=== PATIENT | male | born 1980 | race African-American/Black ===

== ENCOUNTER 2016-11-12 06:45 | Observation (INO) | payer OTHER ==
[2016-11-12 07:46] LABS: Hematocrit 44 % (42-52); Hemoglobin 14.9 g/dl (14.0-18.0); Mean Corpuscular HGB Conc 34 g/dl (31-36); Mean Corpuscular Hemoglobin 32 pg (27-31); Mean Corpuscular Volume 94 fL (80-94); Mean Platelet Volume 8 um3 (7.4-10.4); Red Blood Count 4.68 10^6/ul (4.0-5.4); Red Cell Distribution Width 13 % (10.5-15); White Blood Count 5.5 10^3/ul (3.5-10.8)
[2016-11-12 07:59] LABS: ALT 16 U/L (7-52); Albumin 4.5 g/dL (3.2-5.2); Alkaline Phosphatase 38 U/L (34-104); BUN/Creatinine Ratio 9.9 (8-20); Blood Urea Nitrogen 13 mg/dL (6-24); CO2 Carbon Dioxide 24 mmol/L (22-32); Calcium 9.7 mg/dL (8.6-10.3); Chloride 104 mmol/L (101-111); EGFR African American 79.2 (>60); EGFR Non-African American 61.6 (>60); Globulin 2.9 g/dL (2-4); Glucose 114 mg/dL (70-100); Magnesium 1.9 mg/dL (1.9-2.7); Sodium 133 mmol/L (133-145); Total Protein 7.4 g/dL (6.4-8.9)
[2016-11-12 08:01] LABS: Alcohol < 10 mg/dL (<10)
[2016-11-12 08:12] LABS: TSH (Thyroid Stimulating Horm) 2.49 mcIU/mL (0.34-5.60)
--- NOTE | 2016-11-12 08:42 | RAD ---
INDICATION: Syncope. COMPARISON: Comparison is made with prior CTs of the brain from February 21, 2010 and March 21, 2015. TECHNIQUE: Contiguous axial sections of the brain were obtained from the skull base to the vertex without contrast. FINDINGS: The ventricles, cisterns and sulci are within normal limits. There is a fluid density lesion present in the right frontal lobe measuring 1.4 x 1.3 cm in size which is unchanged from the prior exams and suggestive of an arachnoid cyst as previously noted. No other focal abnormalities or mass effect are seen. There is no evidence for hemorrhage. No significant focal osseous abnormality is seen. The visualized portion of the paranasal sinuses and mastoid air cells appear clear. IMPRESSION: 1. NO EVIDENCE FOR ACUTE INTRACRANIAL ABNORMALITY. 2. STABLE CYSTIC LESION IN THE RIGHT FRONTAL LOBE.
[2016-11-12] MEDS ORDERED: NS 0.9% 1000 ML* 1,000 ML IV SCH (08:45)
--- NOTE | 2016-11-12 08:46 | RAD ---
INDICATION: Neck pain. Fall. COMPARISON: CT cervical spine June 12, 2015 TECHNIQUE: Noncontrast axial source images was performed from the skull base to the thoracic inlet. Coronal and and sagittal reformatted images were generated. FINDINGS: Vertebrae: There is no fracture or acute focal bony lesion. There is minor vertebral spurring about C5-C6 and moderate disc space narrowing about C5-C6. Alignment: The craniocervical junction appears normal. The cervical vertebrae are normally aligned. Central Canal: There are no significant CT abnormalities of the central canal or foramina. MR imaging is a more sensitive method to evaluate the canal and foramina. Intervertebral disc spaces: The remaining disc spaces are maintained. Brain: The visualized brain appears unremarkable. Soft tissues: The visualized soft tissue elements of the neck are unremarkable. The prevertebral soft tissues appear normal. The lung apices are clear. Other: There is mild right apical scarring, unchanged. IMPRESSION: NO ACUTE CT FINDINGS.
[2016-11-12] MEDS ORDERED: Tetan/Diph/Pertus SYR(Tdap)* 0.5 ML SYR(BOOSTRIX) use SYR IM ONE (09:16)
--- NOTE | 2016-11-12 09:19 | RAD ---
INDICATION: Syncope. COMPARISON: Comparison is made with a prior chest x-ray study from December 02, 2012. TECHNIQUE: Dual-energy PA and lateral views of the chest were obtained. FINDINGS: The heart is within normal limits in size. Mediastinal and hilar contours appear within normal limits. The lungs are clear. No pleural effusion is present. IMPRESSION: NO EVIDENCE FOR ACTIVE CARDIOPULMONARY DISEASE.
--- NOTE | 2016-11-12 10:11 | ED ---
Donavan Palm Billy, scribed for Gilbert Taylor MD on 11/12/16 at 0720 . Syncope/Near Syncope - HPI Summary HPI Summary: Patient is a 36 year-old male coming to [facility] for evaluation of a syncopal episode this morning at approximately 0600. Patient says that he got up out of bed, felt "weird," and walked downstairs to take his medication (Zoloft). He states that the next thing he can recall is that he is on the floor, and his girlfriend was next to him calling 911. He states that his girlfriend did not see any shaking. Patient has a history of several syncopal episodes in the past of unknown cause; patient sites his history of anxiety. He denies any chest pain or shortness of breath, although he had palpitations prior to syncope. Denies headache or neck pain at this time in the ED, but he presents with multiple abrasions to the face. Patient saw his PCP (Dr. Gallardo) recently for evaluation of GI symptoms, but he denies any abdominal pain this morning. - History Of Current Complaint Chief Complaint: EDSyncope Time Seen by Provider: 11/12/16 07:12 Hx Obtained From: Patient Onset/Duration: Sudden Onset Context: Witnessed, Loss Of Consciousness Activity At Onset: Exertion - Walking downstairs to take medication Associated Head Trauma: Yes Aggravating Factor(s): Nothing Alleviating Factor(s): Spontaneous Resolution - Allergies/Home Medications Allergies/Adverse Reactions: Allergies Allergy/AdvReac Type Severity Reaction Status Date / Time ENVIROMENTAL Allergy Mild Sneezing Uncoded 07/23/16 12:47 PMH/Surg Hx/FS Hx/Imm Hx Endocrine/Hematology History: Denies: Hx Anticoagulant Therapy, Hx Diabetes, Hx Thyroid Disease Cardiovascular History: Denies: Hx Hypertension, Hx Pacemaker/ICD Respiratory History: Denies: Hx Asthma, Hx Chronic Obstructive Pulmonary Disease (COPD) History: Denies: Hx Renal Disease Neurological History: Denies: Hx Dementia, Hx Seizures Psychiatric History: Denies: Hx Substance Abuse - Surgical History Surgery Procedure, Year, and Place: CYST REMOVED FROM HEAD Infectious Disease History: No Infectious Disease History: Denies: Hx Hepatitis, Hx Human Immunodeficiency Virus (HIV), History Other Infectious Disease, Traveled Outside the [place] in Last 30 Days - Family History Known Family History: Positive: Diabetes, Respiratory Disease - Asthma, Other - Anxiety - Social History Alcohol Use: None Substance Use Type: Reports: Marijuana Hx Tobacco Use: Yes Smoking Status (MU): Heavy Every Day Tobacco Smoker Type: Cigarettes Amount Used/How Often: 1/2 ppd Review of Systems Positive: Palpitations. Negative: Chest Pain Negative: Shortness Of Breath Positive: Syncope. Negative: Headache All Other Systems Reviewed And Are Negative: Yes Physical Exam - Summary Physical Exam Summary: The patient is well-nourished in no acute distress and in no acute pain. The skin is warm and dry and skin color reflects adequate perfusion. HEENT: There are abrasions to the right-side of the forehead, face, and nose. The pupils are equal and reactive. The conjunctivae are clear and without drainage. Nares are patent and without drainage. Mouth reveals moist mucous membranes and the throat is without erythema and exudate. The external ears are intact. The ear canals are patent and without drainage. The tympanic membranes are intact. Neck is supple with full range of motion and non-tender. There are no carotid bruits. There is no neck vein distension. Respiratory: Chest is non-tender. Lungs are clear to auscultation and breath sounds are symmetrical and equal. Cardiovascular: Heart is regular rate and rhythm. There is no murmur or rub auscultated. There is no peripheral edema and pulses are symmetrical and equal. Abdomen: The abdomen is soft and non-tender. There are normal bowel sounds heard in all four quadrants and there is no organomegaly palpated. Musculoskeletal: There is no back pain noted. Extremities are non-tender with full range of motion. There is good capillary refill. There is no peripheral edema or calf tenderness elicited. Neurological: Patient is alert and oriented to person, place and time. The patient has symmetrical motor strength in all four extremities. Cranial nerves are grossly intact. Deep tendon reflexes are symmetrical and equal in all four extremities. Psychiatric: The patient has an appropriate affect and does not exhibit any anxiety or depression. Triage Information Reviewed: Yes Vital Signs On Initial Exam: Initial Vitals Temp Pulse Resp BP Pulse Ox 97.6 F 63 15 127/90 100 11/12/16 06:45 11/12/16 06:45 11/12/16 06:45 11/12/16 06:45 11/12/16 06:45 Vital Signs Reviewed: Yes Diagnostics - Vital Signs Vital Signs Temp Pulse Resp BP Pulse Ox 11/12/16 07:00 47 15 123/78 100 11/12/16 06:54 53 100 11/12/16 06:52 123/86 11/12/16 06:45 97.6 F 63 15 127/90 100 - Laboratory Lab Results: Lab Results 11/12/16 11/12/16 11/12/16 Range/Units 07:30 07:30 07:30 WBC 5.5 (3.5-10.8) 10^3/ul RBC 4.68 (4.0-5.4) 10^6/ul Hgb 14.9 (14.0-18.0) g/dl Hct 44 (42-52) % MCV 94 (80-94) fL MCH 32 H (27-31) pg MCHC 34 (31-36) g/dl RDW 13 (10.5-15) % Plt Count 193 (150-450) 10^3/ul MPV 8 (7.4-10.4) um3 Neut % (Auto) 56.4 (38-83) % Lymph % (Auto) 34.7 (25-47) % [place] % (Auto) 6.0 (1-9) % Eos % (Auto) 2.2 (0-6) % Baso % (Auto) 0.7 (0-2) % Absolute Neuts (auto) 3.1 (1.5-7.7) 10^3/ul Absolute Lymphs (auto) 1.9 (1.0-4.8) 10^3/ul Absolute Monos (auto) 0.3 (0-0.8) 10^3/ul Absolute Eos (auto) 0.1 (0-0.6) 10^3/ul Absolute Basos (auto) 0 (0-0.2) 10^3/ul Absolute Nucleated RBC 0 10^3/ul Nucleated RBC % 0.1 APTT (26.0-36.3) seconds Sodium 133 (133-145) mmol/L Potassium TNP Chloride 104 (101-111) mmol/L Carbon Dioxide 24 (22-32) mmol/L Anion Gap TNP BUN 13 (6-24) mg/dL Creatinine 1.31 H (0.67-1.17) mg/dL Est GFR ( Amer) 79.2 (>60) Est GFR (Non-Af Amer) 61.6 (>60) BUN/Creatinine Ratio 9.9 (8-20) Glucose 114 H (70-100) mg/dL Lactic Acid 1.5 (0.5-2.0) mmol/L Calcium 9.7 (8.6-10.3) mg/dL Magnesium 1.9 (1.9-2.7) mg/dL Total Bilirubin 0.80 (0.2-1.0) mg/dL AST TNP ALT 16 (7-52) U/L Alkaline Phosphatase 38 (34-104) U/L Troponin I 0.00 (<0.04) ng/mL B-Natriuretic Peptide ( - 100) pg/mL Total Protein 7.4 (6.4-8.9) g/dL Albumin 4.5 (3.2-5.2) g/dL Globulin 2.9 (2-4) g/dL Albumin/Globulin Ratio 1.6 (1-3) TSH 2.49 (0.34-5.60) mcIU/mL Serum Alcohol < 10 (<10) mg/dL 11/12/16 11/12/16 11/12/16 Range/Units 08:25 08:25 08:25 WBC (3.5-10.8) 10^3/ul RBC (4.0-5.4) 10^6/ul Hgb (14.0-18.0) g/dl Hct (42-52) % MCV (80-94) fL MCH (27-31) pg MCHC (31-36) g/dl RDW (10.5-15) % Plt Count (150-450) 10^3/ul MPV (7.4-10.4) um3 Neut % (Auto) (38-83) % Lymph % (Auto) (25-47) % [place] % (Auto) (1-9) % Eos % (Auto) (0-6) % Baso % (Auto) (0-2) % Absolute Neuts (auto) (1.5-7.7) 10^3/ul Absolute Lymphs (auto) (1.0-4.8) 10^3/ul Absolute Monos (auto) (0-0.8) 10^3/ul Absolute Eos (auto) (0-0.6) 10^3/ul Absolute Basos (auto) (0-0.2) 10^3/ul Absolute Nucleated RBC 10^3/ul Nucleated RBC % APTT 25.9 L (26.0-36.3) seconds Sodium (133-145) mmol/L Potassium 3.8 Chloride (101-111) mmol/L Carbon Dioxide (22-32) mmol/L Anion Gap BUN (6-24) mg/dL Creatinine (0.67-1.17) mg/dL Est GFR ( Amer) (>60) Est GFR (Non-Af Amer) (>60) BUN/Creatinine Ratio (8-20) Glucose (70-100) mg/dL Lactic Acid (0.5-2.0) mmol/L Calcium (8.6-10.3) mg/dL Magnesium (1.9-2.7) mg/dL Total Bilirubin (0.2-1.0) mg/dL AST 17 ALT (7-52) U/L Alkaline Phosphatase (34-104) U/L Troponin I (<0.04) ng/mL B-Natriuretic Peptide 6 ( - 100) pg/mL Total Protein (6.4-8.9) g/dL Albumin (3.2-5.2) g/dL Globulin (2-4) g/dL Albumin/Globulin Ratio (1-3) TSH (0.34-5.60) mcIU/mL Serum Alcohol (<10) mg/dL Result Diagrams: 11/12/16 07:30 11/12/16 08:25 Lab Statement: Any lab studies that have been ordered have been reviewed, and results considered in the medical decision making process. - Radiology CXR Xray Interpretation: No Acute Changes Radiology Interpretation Completed By: Radiologist - CT Cervical Spine CT Interpretation Completed By: Radiologist - NO ACUTE CT FINDINGS. Brain CT Interpretation Completed By: Radiologist - 1. NO EVIDENCE FOR ACUTE INTRACRANIAL ABNORMALITY. 2. STABLE CYSTIC LESION IN THE RIGHT FRONTAL LOBE. - EKG 0713 EKG Interpretation: sinus bradycardia 48 bpm, peaked T-waves in V3-V5. Course/Dx Assessment/Plan: Patient is a 36 year-old male coming to [facility] for evaluation of a syncopal episode this morning at approximately 0600. Patient says that he got up out of bed, felt "weird," and walked downstairs to take his medication ( Zoloft). He states that the next thing he can recall is that he is on the floor , and his girlfriend was next to him calling 911. He states that his girlfriend did not see any shaking. Patient has a history of several syncopal episodes in the past of unknown cause; patient sites his history of anxiety. He denies any chest pain or shortness of breath, although he had palpitations prior to syncope. Denies headache or neck pain at this time in the ED, but he presents with multiple abrasions to the face. Patient saw his PCP (Dr. Gallardo) recently for evaluation of GI symptoms, but he denies any abdominal pain this morning. Bloodwork WNL except for creatinine of 1.31. CT of the head shows no acute intracranial pathology. CT neck shows no fracture or dislocation. CXR shows no acute intrathoracic pathology. EKG shows sinus bradycardia with peaked T-waves with no ST elevation. Potassium is noted to be WNL. The patient had a syncopal episode where he complained of rapid heartrate before he passed out. At this point, I am unsure if he had arrhythmia causing the syncopal episode. I have no suspicion for PE since he is no hypoxic, saturating 100% O2, and the heart rate is ranging between 47 and 53 bpm. I also do not suspect acute coronary syndrome without any comorbidities or EKG changes. However, because of his syncopal episode, I discussed the case with Dr. Ly who accepted the patient for admission. He is hemodynamically stable, A&Ox3. He has abrasions on the face, therefore he will be given a tetanus booster. - Diagnoses Differential Diagnosis/HQI/PQRI: Positive: Cerebral Vascular Accident, Dysrhythmia, Hypoglycemia, Hypovolemia, Seizure, Transient Ischemic Attack Provider Diagnoses: SYNCOPE/DEHYDRATION - Physician Notifications Discussed Care Of Patient With: Dr. Ly (hospitalist) @ 0865: patient care discussed. Dr. Ly (hospitalist) @ 0906: accepts admission. Discharge - Discharge Plan Condition: Stable Disposition: ADMITTED TO [facility] documentation as recorded by the Donavan rodriguez Billy accurately reflects the service I personally performed and the decisions made by me, Gilbert Taylor MD.
[2016-11-12] MEDS: Ibuprofen TAB* 600 MG PO PRN ×2 (10:44→16:53)
[2016-11-12] MEDS ORDERED: Acetaminophen TAB* 325 MG PO PRN (12:55)
[2016-11-12] MEDS ORDERED: Ondansetron INJ* 2 MG/ML VIAL IV PRN (12:55)
--- NOTE | 2016-11-12 16:21 | ECHO ---
Patient: HOA METCALF [facility] Rec#: [id number] : 1980 Date: 11/12/2016 Age: 36y Height: 187.96 cm / 74.0 in Weight: 73.48 kg / 161.9 lbs Sex: M BSA: 1.99 Room#: [facility] Admit Date#: 11/12/2016 Type: Inpatient Referring: Tan Mai NP Reading: Delilah Ramirez MD Solutions Analyst: Chandni Melendrez [facility] Transthoracic Echocardiogram Indication: Syncope BP: 125/74 HR: 46 Rhythm: Bradycardia Findings History: No PMHx,smoker. Technical Comments: The study is technically limited due to patient body habitus. Completed at 1513. Left Ventricle: The left ventricular chamber size is normal. Global left ventricular wall motion and contractility are within normal limits. There is normal left ventricular systolic function. The estimated ejection fraction is 55-60%. Normal left ventricular diastolic filling is observed. 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 Right Ventricle: The right ventricular cavity size is normal. The right ventricular global systolic function is low normal. Right Atrium: The right atrial cavity size is normal. Aortic Valve: The aortic valve structure is normal. There is no evidence of aortic regurgitation. There is no evidence of aortic stenosis. Mitral Valve: The mitral valve leaflets are mildly thickened. There is no evidence of mitral regurgitation. There is no evidence of mitral stenosis. Tricuspid Valve: The tricuspid valve leaflets are normal. There is trace to mild tricuspid regurgitation. No pulmonary hypertension is noted. There is no tricuspid stenosis. Pulmonic Valve: There is mild pulmonic regurgitation. There is no pulmonic stenosis. Pericardium: The pericardium appears normal. Aorta: There is no dilatation of the ascending aorta. There is no dilatation of the aortic arch. There is no dilation of the aortic root. Pulmonary Artery: The main pulmonary artery appears normal. Venous: The inferior vena cava appears normal in size. Conclusions The left ventricular chamber size is normal. Global left ventricular wall motion and contractility are within normal limits. The estimated ejection fraction is 55-60%. The right ventricular global systolic function is low normal. .Intra atrial septum is mildly aneurismal. All valves appear structurally normal with normal excursion. There is trace to mild tricuspid regurgitation. No prior echo to compare. Measurements Name Value Normal Range RVIDd (AP) 2D 2.2 cm (0.9 - 2.6) RVDdMajor (2D) 3.2 cm (2.2 - 4.4) RAd ISD 4CH 4 cm (3.4 - 4.9) RA (A4C)W 3.9 cm (2.9 - 4.6) IVSd (2D) 0.7 cm (0.6 - 1) LVPWd (2D) 0.8 cm (0.6 - 1) LVIDd (2D) 4.6 cm (3.6 - 5.4) LVIDs (2D) 2.9 cm - LV FS (2D) 37 % (25 - 45) Aortic Annulus 1.7 cm (1.4 - 2.6) Ao root diameter (2D) 3.2 cm (2.1 - 3.5) Ascending Ao 2.4 cm (2.1 - 3.4) Aortic arch 2.5 cm (1.8 - 3.4) Descending Ao 0.6 cm - LA dimension (AP) 2D 2.6 cm (2.3 - 3.8) LAd ISD 4CH 3.8 cm (2.9 - 5.3) LA ISD 4CH W 4.7 cm (2.5 - 4.5) Name Value Normal Range LA ESV SP 4CH (A/L) 62 ml - LA ESV SP 2CH (A/L) 32 ml - LA ESV BP (A/L) 47 ml - LA ESV BP (A/L) index 23.77 ml/m2 - LA ESV SP 4CH (MOD) 50 ml - LA ESV SP 2CH (MOD) 27 ml - Name Value Normal Range MV E-wave Vmax 0.7 m/sec - MV deceleration time 297 msec - MV A-wave Vmax 0.7 m/sec - MV E:A ratio 1.07 ratio - LV septal e' Vmax 0.17 m/sec - LV lateral e' Vmax 0.12 m/sec - LV E:e' septal ratio 4.11 ratio - LV E:e' lateral ratio 5.83 ratio - Name Value Normal Range AV Vmax 1.2 m/sec - AV VTI 28 cm - AV peak gradient 6.17 mmHg - AV mean gradient 2.47 mmHg - LVOT Vmax 1 m/sec - LVOT VTI 22.5 cm - LVOT peak gradient 4.37 mmHg - LVOT mean gradient 1.99 mmHg - Name Value Normal Range TR Vmax 2.1 m/sec - TR peak gradient 17 mmHg - RAP 3 mmHg - RVSP 20 mmHg - IVC diameter 1.1 cm - Name Value Normal Range PV Vmax 0.6 m/sec - PV peak gradient 1.57 mmHg -
[2016-11-12] MEDS: NS 0.9% 1000 ML* 1,000 ML IV SCH ×2 (16:55→23:49)
[2016-11-12 20:32] LABS: Benzodiazepine Urine Screen None Detected (None Detect)
[2016-11-12 20:52] LABS: Urine Bilirubin Negative (Negative); Urine Glucose Negative (Negative); Urine Nitrite Negative (Negative)
--- NOTE | 2016-11-12 21:05 | HP ---
HISTORY AND PHYSICAL: DATE OF ADMISSION: 11/12/16 PRIMARY CARE PROVIDER: Dr. Gallardo. ATTENDING PHYSICIAN WHILE IN THE HOSPITAL: Ashli Hall MD* (report dictated by Tan Mai NP). CHIEF COMPLAINT: Syncope. HISTORY OF PRESENT ILLNESS: Mr. Porras is a 36-year-old male patient, who really only carries a history of anxiety and according to the patient he was recently started on Zoloft, but he states he has not really been taking it every day as prescribed. What happened today is at 6 in the morning, he went to wake his son up for school and he walked down the stairs to take his Zoloft that is the last thing he remembers, the next thing he remembers he had come to , his girlfriend was standing over him. He apparently had passed out. He does state that the evening prior to this episode he was having palpitations and some chest tightness, but he had none right before the event and none after the event. There was no palpitations. Denied having any shortness of breath and denied having any chest pain. The girlfriend summoned EMS, EMS came and when they went to pick him up and put him on a wheelchair, he had another episode where he fainted again and at that point they put him on a stretcher and then brought him to the ER. The patient states that before passing out, the only thing he felt is he felt dizzy. He denied having any confusion afterwards and that when he came to, he knew exactly where he was. He knew what had happened after his girlfriend told him. He remembers his girlfriend talking to him and telling him that he had fainted. He is unsure of exactly how long he was out for the first episode, second episode he states he was out for just seconds and there was no report of incontinence and there was no report of myoclonic movement. The patient came to the ER and was evaluated. He also states that leading up to this a few days ago, he was having episodes of diarrhea, 4 to 5 bowel movements a day and despite this he took a laxative on top of it and then he said he really had multiple loose bowel movements. He denied having any recent antibiotics and denied having any abdominal pain or fever. Nonetheless, because of the syncopal episode, he came to the ER, was evaluated, there was concern because of the syncope and the hospitalist service was asked to evaluate for admission. PAST MEDICAL HISTORY: Significant for anxiety. PAST SURGICAL HISTORY: Denied. HOME MEDICATIONS: According to the patient the only thing he is taking now and he admittedly does not take it as prescribed; he is on Zoloft 50 mg daily and he takes it sporadically. ALLERGIES TO MEDICATIONS: No known drug allergies. FAMILY HISTORY: His mother had asthma. Father had history of diabetes and HIV. SOCIAL HISTORY: He does not smoke. He occasionally smokes marijuana. He denied any other recreational drug use. He does have a girlfriend. He does not appoint a surrogate decision maker at this point. REVIEW OF SYSTEMS: There is no documented fever. He denied having any significant weight change. There was no double vision. He denies having any ear discharge. There is no rhinorrhea. No sore throat. No thyroid enlargement. He denies having any chest pain. There is no orthopnea. No nocturnal dyspnea. There is no abdominal pain. There was no nausea, no vomiting. There was diarrhea. No dysuria. No frequency. No loss of consciousness. No pruritus. No skin ulcerations. Review of 14 systems completed, all others negative. PHYSICAL EXAMINATION GENERAL: At this time, Mr. Porras is a 36-year-old male patient. He appears well nourished, well developed. VITAL SIGNS: Blood pressure 125/68 with a pulse of 55, respirations 18, O2 sat 100%, and temperature 98.7. HEENT: Head, he does have area of abrasion on right side of his face and above the right eye, otherwise atraumatic. Eyes: Sclerae anicteric. EOMs are intact. Pupils reactive to light. Throat: Oral mucosa appears to be dry. No oropharyngeal erythema. NECK: Supple. LUNGS: Clear to auscultation bilaterally. No wheezes, rales, or rhonchi. HEART: Sounds S1 and S2. Regular rate and rhythm. No murmurs, rubs, or gallops. ABDOMEN: Soft, flat, and nontender. Bowel sounds present. EXTREMITIES: Pulses 2+ throughout. Able to move all 4 extremities with 5/5 strength. NEUROLOGIC: The patient is awake, he is alert, he is oriented x3. His tongue is midline. He had no gross focal deficits. SKIN: Intact with the exception of the abrasion to the right side of the face. LABORATORY DATA: Labs today revealed WBC of 5.5, RBC of 4.68, hemoglobin 14.9 , hematocrit of 44, platelet count of 193. The PTT was 25.9, sodium of 133, potassium of 3.8, chloride of 104, bicarb 24, BUN 13, creatinine 1.31, glucose of 114, lactate 1.5, calcium 9.7, magnesium 1.9, total bilirubin 0.8, AST 17, ALT 16, alk phos of 38. His troponin was 0.00. His BNP was 6. His TSH was normal. Toxicology was negative for alcohol. He did have a cervical spine CT obtained today, which showed no acute CT findings. There was a brain CT today which showed no evidence for acute intracranial abnormalities, stable cystic lesion in the right frontal lobe. There was a chest x-ray obtained today as well, which showed no evidence for acute cardiopulmonary disease. There was an EKG obtained today, which showed sinus bradycardia at a rate of 48. He did not have any AV blocks. He did have ST elevation in V4 and V5, it is subtle, but is probably again early repolarization pattern. He has had this in his previous EKGs and no significant changes. In his previous EKGs, his baseline heart rate is around 50. Old medical records were reviewed. ASSESSMENT AND PLAN: Mr. Porras is a 36-year-old male patient coming into the ER toady with complaints of a syncopal episode today in the setting of having recent episode of a gastroenteritis it sounds like and diarrhea. We were asked to evaluate for admission. He will be admitted under observation status for: 1. Syncope. I suspect the result of this is probably from orthostasis and a vasovagal syncope. He again leading up to this has had diarrhea for 3 to 4 days. He actually took a laxative one of those days and the orthostatics, his heart rate goes from 55 to 88 when he stands in addition to this, his blood pressure does not change, however and his creatinine is up, so he does appear to be hypovolemic. I think he deserves some IV fluids. He has passed out in the past before, so I think an echo is warranted. I will cycle his troponins, I will get an EKG in the morning and we will continue to follow him on telemetry to see if there are any events. 2. Anxiety. At this point, I am going to hold the Zoloft, he is not taking it on a routine basis. He needs to follow with his primary and I did instruct him that he should take this on a routine basis. 3. DVT prophylaxis. He is low risk. He will be placed on SCDs. 4. Fluids, electrolytes and nutrition. He can have a heart healthy diet. 5. Code status. Full code. TIME SPENT: On this admission was 60 minutes, greater than half the time spent [id number] with the patient obtaining my history and physical, other half of the time spent going over the plan of care with the patient and implementing plan of care. I did discuss the plan of care with my attending, Dr. Hall, she is in agreement. TAN MAI NP CC: Dr. Gallardo* [id number]/[facility] #: [id number] MTDOsiris
[2016-11-13] MEDS: Ibuprofen TAB* 600 MG PO PRN ×2 (02:13→09:49)
[2016-11-13 05:36] LABS: Hematocrit 40 % (42-52); Hemoglobin 13.6 g/dl (14.0-18.0); Mean Corpuscular HGB Conc 34 g/dl (31-36); Mean Corpuscular Hemoglobin 32 pg (27-31); Mean Corpuscular Volume 95 fL (80-94); Mean Platelet Volume 8 um3 (7.4-10.4); Red Blood Count 4.27 10^6/ul (4.0-5.4); Red Cell Distribution Width 13 % (10.5-15); White Blood Count 6.7 10^3/ul (3.5-10.8)
[2016-11-13 05:52] LABS: Calcium 8.7 mg/dL (8.6-10.3); EGFR African American 96.9 (>60); EGFR Non-African American 75.3 (>60)
[2016-11-13 09:36] VITALS: BP 120/82
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
== END 2016-11-13 11:19 | disposition home or self-care (01) ==
LOC: ED 06:45 → MEDTELE 09:26
PROVIDERS: ADMIT Internal Medicine; ATTEND Internal Medicine
DX: R55 Syncope and collapse (principal); S00.81XA Abrasion of other part of head, initial encounter; S13.4XXA Sprain of ligaments of cervical spine, initial encounter; X58.XXXA Exposure to other specified factors, initial encounter; Y92.9 Unspecified place or not applicable; G93.9 Disorder of brain, unspecified; N17.9 Acute kidney failure, unspecified; F41.9 Anxiety disorder, unspecified; Z23 Encounter for immunization; R00.1 Bradycardia, unspecified; R94.31 Abnormal electrocardiogram [ECG] [EKG]
CPT/HCPCS: 36415; 70450; 71020; 72125; 80048; 80053; 80307; 80320; 81003; 83605; 83735; 83880; 84443; 84484; 85025; 85610; 85730; 90471; 90715; 93005; 93306; 94760; 96360; 96361; 99284; A9270-GY; G0378; G0480; J2405

== ENCOUNTER 2016-11-14 10:14 | Emergency (ER) | payer SELFPAY ==
[2016-11-14] MEDS ORDERED: Meclizine TAB* 12.5 MG PO ONE (10:20)
[2016-11-14] MEDS ORDERED: NS 0.9% 1000 ML* 2,000 ML IV ONE (10:20)
--- NOTE | 2016-11-14 10:57 | RAD ---
INDICATION: Dizziness COMPARISON: November 12, 2016 TECHNIQUE: An AP portable view obtained at 1035 hours is submitted. FINDINGS: Bones/Soft Tissues: There are no acute bony findings. Cardiomediastinal: The cardiomediastinal silhouette is normal. Lungs: There are no infiltrates. Pleura: There are no pleural effusions. Other: None IMPRESSION: NORMAL CHEST.
[2016-11-14 11:05] LABS: Hematocrit 43 % (42-52); Hemoglobin 14.5 g/dl (14.0-18.0); Mean Corpuscular HGB Conc 34 g/dl (31-36); Mean Corpuscular Hemoglobin 32 pg (27-31); Mean Corpuscular Volume 94 fL (80-94); Mean Platelet Volume 8 um3 (7.4-10.4); Red Blood Count 4.58 10^6/ul (4.0-5.4); Red Cell Distribution Width 13 % (10.5-15); White Blood Count 4.4 10^3/ul (3.5-10.8)
[2016-11-14 11:26] LABS: ALT 12 U/L (7-52); AST 14 U/L (13-39); Albumin 4.3 g/dL (3.2-5.2); Alkaline Phosphatase 38 U/L (34-104); Anion Gap 4 mmol/L (2-11); Blood Urea Nitrogen 9 mg/dL (6-24); C Reactive Protein < 1.00 mg/L (< 5.00); CO2 Carbon Dioxide 24 mmol/L (22-32); Calcium 9.4 mg/dL (8.6-10.3); Chloride 106 mmol/L (101-111); Creatine Kinase 145 U/L (10-223); EGFR African American 108.1 (>60); EGFR Non-African American 84.1 (>60); Globulin 2.7 g/dL (2-4); Glucose 90 mg/dL (70-100); Magnesium 1.8 mg/dL (1.9-2.7); Potassium 3.6 mmol/L (3.5-5.0); Sodium 134 mmol/L (133-145)
[2016-11-14 11:57] LABS: Alcohol < 10 mg/dL (<10)
[2016-11-14 12:06] LABS: TSH (Thyroid Stimulating Horm) 1.03 mcIU/mL (0.34-5.60)
[2016-11-14 12:34] VITALS: BP 119/75
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
== END 2016-11-14 12:53 | disposition home or self-care (01) ==
LOC: ED 10:14
DX: R42 Dizziness and giddiness (principal); R51 Headache; R07.9 Chest pain, unspecified; R11.0 Nausea; F17.210 Nicotine dependence, cigarettes, uncomplicated
CPT/HCPCS: 36415; 71010; 80053; 80320; 82550; 83605; 83735; 84443; 84484; 85025; 86140; 96360; 99282; A9270-GY; G0480

== ENCOUNTER 2016-11-22 05:24 | Emergency (ER) | payer OTHER ==
[2016-11-22] MEDS ORDERED: Meclizine TAB* 12.5 MG PO ONE (05:50)
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
[2016-11-22 06:56] VITALS: BP 117/50
== END 2016-11-22 06:59 | disposition home or self-care (01) ==
LOC: ED 05:24
DX: R42 Dizziness and giddiness (principal); R55 Syncope and collapse; J02.9 Acute pharyngitis, unspecified; F17.210 Nicotine dependence, cigarettes, uncomplicated
CPT/HCPCS: 99283; A9270-GY

== ENCOUNTER 2017-03-11 02:06 | Emergency (ER) | payer OTHER ==
[2017-03-11 02:14] VITALS: BP 122/79
[2017-03-11] MEDS ORDERED: Ibuprofen TAB* 800 MG PO ONE (02:25)
[2017-03-11] MEDS ORDERED: Penicillin VK TAB* 250 MG PO ONE (02:25)
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
== END 2017-03-11 02:57 | disposition home or self-care (01) ==
LOC: ED 02:06
DX: K04.7 Periapical abscess without sinus (principal); K02.9 Dental caries, unspecified; S93.401A Sprain of unspecified ligament of right ankle, initial encounter; X50.1XXA Overexertion from prolonged static or awkward postures, initial encounter; Y93.67 Activity, basketball; Y92.310 Basketball court as the place of occurrence of the external cause; K21.9 Gastro-esophageal reflux disease without esophagitis; F41.9 Anxiety disorder, unspecified; F32.9 Major depressive disorder, single episode, unspecified; Z88.6 Allergy status to analgesic agent; Z87.891 Personal history of nicotine dependence
CPT/HCPCS: 99282; A9270-GY

== ENCOUNTER 2017-10-26 19:30 | Emergency (ER) | payer OTHER ==
[2017-10-26] MEDS ORDERED: NS 0.9% 1000 ML* 1,000 ML IV ONE (21:30)
[2017-10-26] MEDS ORDERED: Metoclopramide IV* 5 MG/ML 2 ML VIAL IV ONE (21:30)
[2017-10-26] MEDS ORDERED: Dicyclomine CAP* 10 MG PO ONE (21:32)
[2017-10-26 22:04] LABS: Hematocrit 44 % (42-52); Hemoglobin 15.2 g/dl (14.0-18.0); Mean Corpuscular HGB Conc 35 g/dl (31-36); Mean Corpuscular Hemoglobin 33 pg (27-31); Mean Corpuscular Volume 94 fL (80-94); Red Blood Count 4.63 10^6/ul (4.0-5.4); Red Cell Distribution Width 13 % (10.5-15); Urine Appearance Clear; Urine Blood Negative (Negative); Urine Color Yellow; Urine Ketones Negative (Negative); Urine Protein Negative (Negative); Urine Specific Gravity 1.025 (1.010-1.030); Urine Urobilinogen Negative (Negative); White Blood Count 8.6 10^3/ul (3.5-10.8)
[2017-10-26 22:21] LABS: EGFR Non-African American 71.2 (>60)
[2017-10-26 22:27] LABS: ABS Basophils 0.1 10^3/ul (0-0.2); ABS Eosinophils 0.1 10^3/ul (0-0.6); ABS Lymphocytes 2.9 10^3/ul (1.0-4.8); ABS Monocytes 0.9 10^3/ul (0-0.8); ABS Neutrophils 4.7 10^3/ul (1.5-7.7); ABS Nucleated RBC 0 10^3/ul; Eosinophil % 1.5 % (0-6); Lymphocyte % 33.4 % (25-47); Mean Platelet Volume 9 um3 (7.4-10.4); Nucleated Red Blood Cells % 0.1; Platelet Count 313 10^3/ul (150-450)
[2017-10-26] MEDS ORDERED: Iohexol 300* (CONTRAST) 10 ML SDV IV ONE (23:49)
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
[2017-10-27 02:20] VITALS: BP 107/66
--- NOTE | 2017-10-27 08:20 | RAD ---
INDICATION: Abdominal pain, left lower quadrant pain. COMPARISON: Comparison is made with a prior CT of the abdomen and pelvis from March 21, 2015. TECHNIQUE: A CT scan of the abdomen and pelvis was performed with intravenous and oral contrast following intravenous injection of 109 ml of Omnipaque 300 nonionic contrast. Contiguous axial sections were obtained from the lung bases through the symphysis pubis. Images were reconstructed in the coronal and sagittal planes. FINDINGS: There are curvilinear densities in the left lower lobe suggestive of atelectasis or scarring. No pleural effusion is present. The liver and spleen are within normal limits in size without significant focal abnormality. No calcified gallstones are seen. The pancreas appears to be within normal limits in size. The kidneys and adrenal glands are normal in size. No hydronephrosis is seen. No significant focal renal abnormality is seen. The aorta is normal in caliber and demonstrates homogeneous contrast opacification. No significant enlarged retroperitoneal lymph nodes are seen. The stomach, small and large bowel appear nondistended. The appendix is within normal limits. There is mild sigmoid diverticulosis without evidence for diverticulitis. No free intraperitoneal air or fluid is seen. No significant focal osseous abnormality is seen. 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 IMPRESSION: NO EVIDENCE FOR ACUTE INTRA-ABDOMINAL ABNORMALITY OR CAUSE FOR THE PATIENT'S ABDOMINAL PAIN IS SEEN.
== END 2017-10-27 02:22 | disposition home or self-care (01) ==
LOC: ED 19:30
DX: R10.84 Generalized abdominal pain (principal); R10.32 Left lower quadrant pain; R19.7 Diarrhea, unspecified; K21.9 Gastro-esophageal reflux disease without esophagitis; F41.9 Anxiety disorder, unspecified; F32.9 Major depressive disorder, single episode, unspecified; Z88.6 Allergy status to analgesic agent; Z87.891 Personal history of nicotine dependence
CPT/HCPCS: 36415; 74177; 80053; 81003; 82150; 83690; 85025; 86140; 87491; 87591; 96374; 99283; A9270-GY; J2765; Q9967

== ENCOUNTER 2017-12-06 11:25 | Emergency (ER) | payer OTHER ==
[2017-12-06] MEDS ORDERED: NS 0.9% 1000 ML* 1,000 ML IV ONE (12:25)
[2017-12-06] MEDS ORDERED: Morphine VIAL* 4 MG/ML VIAL (1 ml vial) IV ONE (12:27)
[2017-12-06] MEDS ORDERED: Ondansetron INJ* 2 MG/ML VIAL IV ONE (12:28)
[2017-12-06 12:48] LABS: ABS Basophils 0.1 10^3/ul (0-0.2); ABS Eosinophils 0.1 10^3/ul (0-0.6); ABS Lymphocytes 1.9 10^3/ul (1.0-4.8); ABS Monocytes 0.4 10^3/ul (0-0.8); ABS Neutrophils 1.9 10^3/ul (1.5-7.7); ABS Nucleated RBC 0 10^3/ul; Hematocrit 45 % (42-52); Hemoglobin 15.6 g/dl (14.0-18.0); Lymphocyte % 43.7 % (25-47); Mean Corpuscular HGB Conc 35 g/dl (31-36); Mean Corpuscular Hemoglobin 32 pg (27-31); Mean Corpuscular Volume 94 fL (80-94); Mean Platelet Volume 7.1 um3 (7.4-10.4); Nucleated Red Blood Cells % 0.2; Platelet Count 219 10^3/ul (150-450); Red Blood Count 4.81 10^6/ul (4.0-5.4); Red Cell Distribution Width 13 % (10.5-15); White Blood Count 4.4 10^3/ul (3.5-10.8)
[2017-12-06 13:06] LABS: EGFR Non-African American 76.5 (>60)
--- OUTSIDE RECORDS SUMMARY | 2017-12-06 13:15 | XMS REPORT ---
:1980 External Reference #:[id number] Author Organization [facility] Address [address] [address] Phone [phone] Care Team Providers Name Role Phone Zhao Gallardo MD Primary Care Physician Unavailable Payers Type Date Identification Numbers Payment Provider Subscriber Commercial Effective: Policy Number: [id number] [employer] Ryder Porras 2016 Medicaid PayID: [id number] [address] [address] [place] [address] Workers Compensation Onset: 2016 Policy Number: [employer] Ryder Porras [id number] PayID: [id number] [place] [address] Workers Compensation Onset: 2016 Policy Number: [employer] Ryder Porras [id number] Group Number: [id number] [address] PayID: [id number] [place] [address] Problems Date Description Provider Status Onset: 10/28/2017 Anxiety state Zhao Gallardo M.D. Active Onset: 03/13/2017 Arthralgia of the ankle and/or foot Zhao Gallardo M.D. Active Onset: 09/03/2016 Gastroduodenitis Zhao Gallardo M.D. Active Onset: 09/03/2016 Late effect of contusion Zhao Gallardo M.D. Active Onset: 07/14/2016 Mild recurrent major depression Zhao Gallardo M.D. Active Onset: 07/14/2016 Shoulder joint pain Zhao Gallardo M.D. Active Onset: 07/14/2016 Low back pain Zhao Gallardo M.D. Active Family History Date Family Member(s) Problem(s) Comments Father HIV Mother Asthma Siblings 1 asthma Siblings 2 asthma Social History Type Date Description Comments ETOH Use Denies alcohol use Recreational Drug Use Denies Drug Use Smoking Patient is a former smoker Allergies, Adverse Reactions, Alerts Date Description Reaction Status Severity Comments 09/03/2016 Tylenol nausous active Mild 06/24/2016 NKDA inactive Medications Medication Date Status Form Strength Qnty SIG Indications Ordering Provider Ibuprofen 03/13/ Active Tablets 600mg 30tabs three M25.571 Zhao 2017 times a Pachjaida day MMingo Knee 08/14/ Active Misc 1units use S80.02xS Magnolia Brace/Flexible 2017 daily Pachikara Stays/Medium , M.D. Meclizine HCL 11/14/ Hx Tablets 12.5mg 30tabs 1 tab Other 2017 - tid prn Ordering 03/13/ vertigo Provider 2017 Naproxen 11/13/ Hx Tablets 500mg 1 by Alis Churchill 2017 - mouth Pachikara 03/13/ twice a , M.D. 2017 day as needed pain Ondansetron HCL 11/13/ Hx Tablets 4mg 30tabs one by Other 2017 - mouth Ordering 03/13/ every 4 Provider 2017 hours as needed for nausea Omeprazole 09/03/ Hx Capsules 40mg 30caps 1 by K29.70 Zhao 2017 - DR mouth in Sami 10/28/ Vineet dumont 2018 morning 1 hour before eating Sertraline HCL 07/15/ Hx Tablets 50mg 30tabs 1 by Zhao 2016 - mouth Pachikara 03/13/ every , M.DJh 2017 day Oxycodone HCL 07/14/ Hx Tablets 5mg 42tabs 1 by Alis Olivarez 2015 - mouth Romanian, 09/03/ every 8 STEEL [employer]ER 2017 hours as needed Cyclobenzaprine 06/24/ Hx Tablets 10mg 30tabs twice a Edmond.5 Zhao HCL 2015 - day as Pachikara 03/13/ needed , M.DJh 2017 Naproxen 06/24/ Hx Tablets 375mg 60tabs twice a Edmond.5 Zhao 2015 - day Pachikara 11/13/ , M.DJh 2017 Tramadol HCL 15/ Hx Tablets 50mg 30tabs two 4.5 Zhao 2016 - times a Pachikara 03/13/ day as , M.DJh 2016 for severe pain (not taking) Flexeril 00/ Hx Tablets 10mg 1 by Unknown 0000 - mouth three 2016 times a day as needed Ibuprofen / Hx Tablets 800mg 90tabs by mouth Magnolia 0000 - three Pachikara 09/03/ times a , M.D. 2016 day as needed Penicillin V / Hx Solution 250mg/5ML 4 times Unknown Potassium 0000 - Rec daily 2016 Immunizations CPT Code Status Date Vaccine Reaction Lot # [id number] Given 04/20/2017 Tdap - no immediate reaction , [id number] Tetanus/Diptheria/Acellula patient tolerated well r Pertussis Vital Signs Date Vital Result Comment 10/28/2017 Height 74 inches 6'2" Weight 183.50 lb Heart Rate 58 /min BP Systolic Sitting 118 mmHg BP Diastolic Sitting 72 mmHg O2 % BldC Oximetry 98 % BMI (Body Mass Index) 23.6 kg/m2 04/20/2017 Height 74 inches 6'2" Weight 172.50 lb Heart Rate 61 /min BP Systolic 112 mmHg BP Diastolic 70 mmHg Body Temperature 98.0 F O2 % BldC Oximetry 99 % BMI (Body Mass Index) 22.1 kg/m2 03/13/2017 Height 74 inches 6'2" Weight 174.00 lb Heart Rate 68 /min BP Systolic 118 mmHg BP Diastolic 80 mmHg Body Temperature 96.9 F O2 % BldC Oximetry 98 % BMI (Body Mass Index) 22.3 kg/m2 11/11/2016 Weight 162.00 lb Heart Rate 58 /min BP Systolic Sitting 121 mmHg BP Diastolic Sitting 74 mmHg Body Temperature 97.3 F O2 % BldC Oximetry 98 % 09/03/2016 Weight 165.00 lb with shoes Heart Rate 48 /min BP Systolic 110 mmHg BP Diastolic 80 mmHg O2 % BldC Oximetry 99 % 08/14/2016 Weight 178.00 lb Heart Rate 52 /min BP Systolic Sitting 112 mmHg BP Diastolic Sitting 70 mmHg Body Temperature 96.8 F O2 % BldC Oximetry 98 % 07/31/2016 Weight 176.50 lb Heart Rate 60 /min BP Systolic Sitting 122 mmHg BP Diastolic Sitting 74 mmHg Body Temperature 97.5 F O2 % BldC Oximetry 98 % 07/14/2016 Weight 164.00 lb Heart Rate 63 /min BP Systolic Sitting 120 mmHg BP Diastolic Sitting 78 mmHg Body Temperature 97.3 F O2 % BldC Oximetry 98 % 06/24/2016 Height 73.5 inches 6'1.50" Weight 168.50 lb Heart Rate 65 /min BP Systolic Sitting 120 mmHg BP Diastolic Sitting 68 mmHg Body Temperature 96.4 F O2 % BldC Oximetry 98 % BMI (Body Mass Index) 21.9 kg/m2 Results Test Date Test Result H/L Range Note Laboratory test finding 10/26/2017 Potassium Redraw 3.8 mmol/L 3.5-5.0 Ast Redraw 16 U/L 13-39 Urinalysis Profile 10/26/2017 Urine Color Yellow Urine Appearance Clear Urine Specific [place]by 1.025 1.010-1.030 Urine pH 6.0 5-9 Urine Urobilinogen Negative Negative Urine Ketones Negative Negative Urine Protein Negative Negative Urine Leukocytes Negative Negative Urine Blood Negative Negative Urine Nitrite Negative Negative Urine Bilirubin Negative Negative Urine Glucose Negative Negative Comp Metabolic Panel 10/26/2017 Sodium 135 mmol/L 133-145 Chloride 104 mmol/L 101-111 Co2 Carbon Dioxide 26 mmol/L 22-32 Glucose 85 mg/dL 70-100 Blood Urea Nitrogen 18 mg/dL 6-24 Creatinine 1.15 mg/dL 0.67-1.17 BUN/Creatinine Ratio 15.7 8-20 Calcium 9.2 mg/dL 8.6-10.3 Total Protein 7.2 g/dL 6.4-8.9 Albumin 4.4 g/dL 3.2-5.2 Globulin 2.8 g/dL 2-4 Albumin/Globulin Ratio 1.6 1-3 Total Bilirubin 0.40 mg/dL 0.2-1.0 Alkaline Phosphatase 46 U/L 34-104 Alt 14 U/L 7-52 Egfr Non- 71.2 >60 Egfr 91.5 >60 1 Potassium TNP mmol/L 3.5-5.0 2 Anion Gap 5 mmol/L 2-11 Ast TNP U/L 13-39 3 Laboratory test finding 10/26/2017 Amylase 116 U/L High 29-103 Lipase 35 U/L 11.0-82.0 C Reactive Protein < 1.00 mg/L < 5.00 4 CBC Auto Diff 10/26/2017 White Blood Count 8.6 10^3/uL 3.5-10.8 Red Blood Count 4.63 10^6/uL 4.0-5.4 Hemoglobin 15.2 g/dL 14.0-18.0 Hematocrit 44 % 42-52 Mean Corpuscular Volume 94 fL 80-94 Mean Corpuscular Hemoglobin 33 pg High 27-31 Mean Corpuscular HGB Conc 35 g/dL 31-36 Red Cell Distribution Width 13 % 10.5-15 Platelet Count 313 10^3/uL 150-450 Mean Platelet Volume 9 um3 7.4-10.4 Abs Neutrophils 4.7 10^3/uL 1.5-7.7 Abs Lymphocytes 2.9 10^3/uL 1.0-4.8 Abs Monocytes 0.9 10^3/uL High 0-0.8 Abs Eosinophils 0.1 10^3/uL 0-0.6 Abs Basophils 0.1 10^3/uL 0-0.2 Abs Nucleated RBC 0 10^3/uL Granulocyte % 54.3 % 38-83 Lymphocyte % 33.4 % 25-47 Monocyte % 9.9 % High 0-7 Eosinophil % 1.5 % 0-6 Basophil % 0.9 % 0-2 Nucleated Red Blood Cells % 0.1 GC/Chlamydia Amplified Rna 10/26/2017 Chlamydia trachomatis Rna Negative Negative Neisseria gonorrhoeae (GC) Rna Negative Negative Drug Abuse 20 Urine 07/14/2016 Urine Amphetamine Negative ng/mL 5 Urine Barbiturates Negative ng/mL 6 Urine Benzodiazepines Negative ng/mL 7 Urine Cocaine Negative ng/mL 8 Urine Phencyclidine Negative ng/mL Cutoff: 25 Urine Tetrahydrocannabinol Presumptive Posi <SEE NOTE> Cutoff: 50 9 ng/mL Creatinine 221.2 mg/dL Specific [place] 1.015 pH 7.1 Oxidants Negative 10 Adulterants Comment Normal Codeine, Ur Not Detected ng/mL Cutoff: 25 11 Hldxyod-6-clwc-glucuronide, Ur Not Detected ng/mL 12 Morphine, Ur Not Detected ng/mL Cutoff: 25 13 Obsbrotp-4-ooxc-glucuronide, U Not Detected ng/mL 14 6-monoacetylmorphine, Ur Not Detected ng/mL Cutoff: 25 15 Hydrocodone, Ur Not Detected ng/mL Cutoff: 25 16 Norhydrocodone, Ur Not Detected ng/mL Cutoff: 25 17 Dihydrocodeine, Ur Not Detected ng/mL Cutoff: 25 18 Hydromorphone, Ur Not Detected ng/mL Cutoff: 25 19 Ldltnpequnict3dgxlrfzfaxcihde Not Detected ng/mL 20 Oxycodone, Ur Not Detected ng/mL Cutoff: 25 21 Noroxycodone, Ur Not Detected ng/mL Cutoff: 25 22 Oxymorphone, Ur Not Detected ng/mL Cutoff: 25 23 Jyekcfitmdz-3-dpzh-glucuronide Not Detected ng/mL 24 Noroxymorphone, Ur Not Detected ng/mL Cutoff: 25 25 Fentanyl, Ur Not Detected ng/mL Cutoff: 2 26 Norfentanyl, Ur Not Detected ng/mL Cutoff: 2 27 Meperidine, Ur Not Detected ng/mL Cutoff: 25 28 Normeperidine, Ur Not Detected ng/mL Cutoff: 25 29 Naloxone, Ur Not Detected ng/mL Cutoff: 25 30 Hyoceoka-4-lpya-glucuronide, U Not Detected ng/mL 31 Methadone, Ur Not Detected ng/mL Cutoff: 25 32 Eddp, Ur Not Detected ng/mL Cutoff: 25 33 Propoxyphene, Ur Not Detected ng/mL Cutoff: 25 34 Norpropoxyphene, Ur Not Detected ng/mL Cutoff: 25 35 Tramadol, Ur Not Detected ng/mL Cutoff: 25 36 O-desmethyltramadol, Ur Not Detected ng/mL Cutoff: 25 37 Tapentadol, Ur Not Detected ng/mL Cutoff: 25 38 N-desmethyltapentadol, Ur Not Detected ng/mL Cutoff: 50 39 Xvxhcwhmzf-ivdc-nvhumzehibl, U Not Detected ng/mL 40 Buprenorphine, Ur Not Detected ng/mL Cutoff: 5 41 Norbuprenorphine, Ur Not Detected ng/mL Cutoff: 5 42 Norbuprenorphine glucuronide Not Detected ng/mL Cutoff: 20 43 Opioid Interpretation See Comment 44 THC Confirmation Urine 07/14/2016 Urine Carboxy THC Confirm 47 ng/mL 45 Urine THC Interpretation Positive. 46 1 Because ethnic data is not always readily available, this report includes an eGFR for both -Americans and non- Americans. The National Kidney Disease Education Program (NKDEP) does not endorse the use of the MDRD equation for patients that are not between the ages of 18 and 70, are , have extremes of body size, muscle mass, or nutritional status, or are non- or non-. According to the National Kidney Foundation, irrespective of diagnosis, the stage of the disease is based on the level of kidney function: Stage Description GFR(mL/min/1.73 m(2)) 1 Kidney damage with normal or decreased GFR 90 2 Kidney damage with mild decrease in GFR 60-89 3 Moderate decrease in GFR 30-59 4 Severe decrease in GFR 15-29 5 Kidney failure <15 (or dialysis) 2 Specimen hemolyzed, spoke to Amy for recollect. 3 Specimen hemolyzed, spoke to Amy for recollect. 4 Acute inflammation: >10.00 5 REFERENCE VALUE Cutoff: 500 6 REFERENCE VALUE Cutoff: 200 7 REFERENCE VALUE Cutoff: 100 8 REFERENCE VALUE Cutoff: 150 9 Presumptive Positive Drug confirmation to follow. Presumptive Positive means that the screening method is positive, but the test needs to be run by a confirmatory method before being finalized. ADDITIONAL INFORMATION This report is intended for use in clinical monitoring or management of patients. It is not intended for use in employment-related testing. 10 REFERENCE VALUE Cutoff: 200 mg/L 11 Tylenol 3 12 Metabolite of codeine REFERENCE VALUE Cutoff: 100 13 Kelly Watts, MS Contin; Also a minor metabolite (10%) of codeine and can be seen in low concentrations (<2,000 ng/mL) with poppy seed ingestion. 14 Metabolite of morphine REFERENCE VALUE Cutoff: 100 15 Metabolite of heroin 16 Lortab, [employer], Vicodin; Also a very minor metabolite of codeine and impurity (<1%) of oxycodone. 17 Metabolite of hydrocodone 18 Metabolite of hydrocodone 19 Dilaudid, Exalgo; Also a metabolite of hydrocodone and a minor (<5%) metabolite of morphine. 20 Metabolite of hydromorphone REFERENCE VALUE Cutoff: 100 21 Endocet, Percocet, Oxycontin 22 Metabolite of oxycodone 23 Numorphan, Opana; Also a metabolite of oxycodone. 24 Metabolite of oxymorphone REFERENCE VALUE Cutoff: 100 25 Metabolite of oxymorphone 26 Actiq, Duragesic, Fentora 27 Metabolite of fentanyl 28 Demerol 29 Metabolite of meperidine 30 Narcan 31 Metabolite of naloxone REFERENCE VALUE Cutoff: 100 32 Dolophine 33 Metabolite of methadone 34 Darvon, Darvocet 35 Metabolite of propoxyphene 36 Tradol, Ultram, Ultracet 37 Metabolite of tramadol 38 Nucynta 39 Metabolite of tapentadol 40 Metabolite of tapentadol REFERENCE VALUE Cutoff: 100 41 Buprenex, Suboxone 42 Metabolite of buprenorphine 43 Metabolite of buprenorphine 44 No opioids were detected. The absence of expected drug(s) and/or drug metabolite(s) may indicate non-compliance, altered pharmacokinetics, inappropriate timing of specimen collection relative to drug administration, diluted/adulterated urine, or limitations of testing. ADDITIONAL INFORMATION This test was developed and its performance characteristics determined by [facility] in a manner consistent with CLIA requirements. This test has not been cleared or approved by the U.S. Food and Drug Administration. Test Performed by: [facility] - [address] [address] Marketing Administrative Assistant: Hector Daley II, M.D., Ph.D. 45 REFERENCE VALUE Cutoff: 3.0 46 ADDITIONAL INFORMATION This report is intended for use in clinical monitoring and management of patients. It is not intended for use in employment-related testing. Test Performed by: [facility] - [address] [address] Marketing Administrative Assistant: Hector Daley II, M.D., Ph.D. Procedures Date CPT Code Description Status 11/13/2016 61434 EKG, Interpretation Only Completed 11/12/2016 81850 ECHO Transthorasic Realtime 2D W Doppler & Color Completed Flow Hosp 12/19/2009 83911 Rad Exam; Hand Comp Completed 11/19/2009 63852 Closed TX Metacarpal FX Single W/O Manipulation, Ea Completed Bone Encounters Type Date Location Provider CPT E/M Dx Office Visit 10/28/2017 1:40p [facility] Zhao Gallardo, [address] F41.9 - Henrique Manley R10.9 Office Visit 04/20/2017 3:00p [facility] Zhao Gallardo, [address]87 R10.30 Medicine - [address] MMingo M25.551 Z23 Office Visit 03/13/2017 10:00a [facility] Zhao Gallardo, [address] M25.571 - [address] M.DJh Office Visit 11/13/2016 2:25p [facility] [address] R55 Assoc,[facility] Hospitalists SAVANNA Larios R19.7 Office Visit 11/12/2016 2:24p [facility] Ass[facility],pc Lazarus Mai, [address] R55 Hospitalists N.P. R19.7 F41.9 Office Visit 11/11/2016 4:20p [facility] Zhao Gallardo, [address]663 K29.70 Medicine - [address] Elan Manley F41.0 Office Visit 09/03/2016 2:40p [facility] Zhao Gallardo, [address]39 S80.02xS Medicine - M.Jasmyn Duenas S90.32xS K29.70 Office Visit 08/14/2016 8:40a [facility] Zhao Gallardo, [address]12 S80.02xS Medicine - [address] M.Jasmyn S90.32xS Office Visit 07/31/2016 4:20p [facility] Zhao Gallardo, [address]2905 S90.32xS Medicine - [address] MMingo S80.02xS Office Visit 07/14/2016 4:00p [facility] Zhao Gallardo M.D. 56020 M54.5 Medicine - [address] M25.511 F33.0 Office Visit 06/24/2016 9:00a [facility] Zhao Gallardo M.D. 23623 M54.5 Medicine - [address] M54.2 M25.511 M25.532 Plan of Care 10/28/2017 - Zhao Gallardo M.D.F41.9 Anxiety disorder, unspecifiedComments: Is mild call back for worsening symptomsFollow up:as meszlyS98.9 Unspecified abdominal painComments:Resolved
[2017-12-06] MEDS ORDERED: Iohexol 300* (CONTRAST) 10 ML SDV IV ONE (13:24)
[2017-12-06 14:15] LABS: Urine Appearance Clear; Urine Blood Negative (Negative); Urine Color Straw; Urine Ketones Negative (Negative); Urine Protein Negative (Negative); Urine Specific Gravity 1.004 (1.010-1.030); Urine Urobilinogen Negative (Negative)
--- NOTE | 2017-12-06 15:24 | RAD ---
INDICATION: Post prandial diarrhea for one week. Sharp abdominal pain. Headaches. COMPARISON: October 27, 2017 CT. TECHNIQUE: Multidetector CT images were obtained from the lung bases to the ischial tuberosities with 99 mL Omnipaque 300 IV and oral contrast. Multiplanar reformation. REPORT: Diffuse decreased density of the liver consistent with fatty infiltration. No focal hepatic lesions, CT abnormality of the gallbladder or biliary dilatation. Minimal prominence of the dorsal duct of the pancreas. Reference coronal images 23-29 of 84 there is suggestion of separate drainage of the common bile duct and the dorsal pancreatic duct to the duodenum suggesting pancreatic divisum. No peripancreatic inflammatory change evident. Unremarkable spleen. Negative for CT abnormality of the upper GI, small bowel, or retrocecal appendix. Enteric contrast extends to the sigmoid colon. No suspicious CT abnormality of the colon evident. Negative for ascites, free air, hernias. Normal adrenal glands. Unremarkable kidneys with symmetric nephrograms and pyelograms. Unremarkable nondilated ureters and urinary bladder. Grossly symmetric seminal vesicles. Negative for lymphadenopathy. Normal diameter abdominal aorta and iliac arteries. Physiologic distention of the IVC. Negative for suspicious osseous lesions. IMPRESSION: 1. Fatty infiltration of the liver. 2. Suggestion of pancreatic divisum variant anatomy which may be associated with increased risk for pancreatitis. No CT evidence for acute pancreatitis or stigmata of chronic pancreatitis. Correlate with pancreatic function tests. 3. Normal appendix documented. 4. Negative for lymphadenopathy or organomegaly.
[2017-12-06 16:21] VITALS: BP 126/86
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
== END 2017-12-06 16:27 | disposition home or self-care (01) ==
LOC: ED 11:25
DX: R10.31 Right lower quadrant pain (principal); K21.9 Gastro-esophageal reflux disease without esophagitis; Z87.891 Personal history of nicotine dependence; K76.0 Fatty (change of) liver, not elsewhere classified
CPT/HCPCS: 36415; 74177; 80053; 81003; 82150; 83605; 83690; 85025; 85730; 86140; 87040; 96360; 96374; 96375; 99283; J2270; J2405; Q9967

== ENCOUNTER 2017-12-12 01:19 | Emergency (ER) | payer OTHER ==
--- OUTSIDE RECORDS SUMMARY | 2017-12-12 01:30 | XMS REPORT ---
:1980 External Reference #:[id number] Author Organization [facility] Address [address] [address] Phone [phone] Care Team Providers Name Role Phone Zhao Gallardo MD Primary Care Physician Unavailable Payers Type Date Identification Numbers Payment Provider Subscriber Commercial Effective: Policy Number: [id number] [employer] Ryder Metcalf 2016 Medicaid PayID: [id number] [address] [address] [place] [address] Workers Compensation Onset: 2016 Policy Number: Progressive Ryder Metcalf [id number] PayID: [id number] [place] [address] Workers Compensation Onset: 2016 Policy Number: [employer] Ryder Metcalf [id number] Group Number: [id number] [address] PayID: [id number] [place] [address] Problems Date Description Provider Status Onset: 10/28/2017 [...] Knee 08/14/ Active Misc 1units use S80.02xS [place] Brace/Flexible 2017 daily Pachikara Stays/Medium , M.D. [...] 1 by Alis Olivarez 2015 - mouth [place], 09/03/ every 8 [employer] 2017 hours as needed Cyclobenzaprine 06/24/ Hx [...] 10mg 1 by Unknown 0000 - mouth 06/24/ three 2016 times a day as needed Ibuprofen / Hx Tablets 800mg 90tabs by mouth Zhao 0000 - three Pachikara 09/03/ times a , M.D. 2016 day as needed Penicillin V / Hx Solution 250mg/5ML 4 times Unknown Potassium 0000 - Rec daily 2016 Immunizations CPT Code Status Date Vaccine Reaction Lot # [id number] Given 04/20/2017 Tdap - no immediate reaction , [id number] Tetanus/Diptheria/Acellula patient tolerated well r Pertussis Vital Signs Date Vital Result Comment 12/08/2017 Height 74 inches 6'2" Weight 175.25 lb Heart Rate 55 /min BP Systolic 130 mmHg BP Diastolic 76 mmHg O2 % BldC Oximetry 97 % BMI (Body Mass Index) 22.5 kg/m2 10/28/2017 Height 74 inches 6'2" Weight 183.50 [...] Test Date Test Result H/L Range Note Urinalysis Profile 12/06/2017 Urine Color Straw Urine Appearance Clear Urine Specific [place] 1.004 Low 1.010-1.030 Urine pH 7.0 5-9 Urine Urobilinogen Negative Negative Urine Ketones Negative Negative Urine Protein Negative Negative Urine Leukocytes Negative Negative Urine Blood Negative Negative Urine Nitrite Negative Negative Urine Bilirubin Negative Negative Urine Glucose Negative Negative Laboratory test finding 12/06/2017 Blood Culture SEE RESULT BELOW 1 Laboratory test finding 10/26/2017 Potassium Redraw 3.8 mmol/L 3.5-5.0 Ast Redraw 16 U/L 13-39 Urinalysis Profile 10/26/2017 Urine Color Yellow Urine Appearance Clear Urine Specific [place] 1.025 1.010-1.030 Urine pH 6.0 5-9 Urine [...] Egfr Non- 71.2 >60 Egfr 91.5 >60 2 Potassium TNP mmol/L 3.5-5.0 3 Anion Gap 5 mmol/L 2-11 Ast TNP U/L 13-39 4 Laboratory test finding 10/26/2017 Amylase 116 U/L High 29-103 Lipase 35 U/L 11.0-82.0 C Reactive Protein < 1.00 mg/L < 5.00 5 CBC Auto Diff 10/26/2017 White Blood Count [...] Negative Neisseria gonorrhoeae (GC) Rna Negative Negative THC Confirmation Urine 07/14/2016 Urine Carboxy THC Confirm 47 ng/mL 6 Urine THC Interpretation Positive. 7 Drug Abuse 20 Urine 07/14/2016 Urine Amphetamine Negative ng/mL 8 Urine Barbiturates Negative ng/mL 9 Urine Benzodiazepines Negative ng/mL 10 Urine Cocaine Negative ng/mL 11 Urine Phencyclidine Negative ng/mL Cutoff: 25 Urine Tetrahydrocannabinol Presumptive Posi <SEE NOTE> Cutoff: 50 12 ng/mL Creatinine 221.2 mg/dL Specific [place] 1.015 pH 7.1 Oxidants Negative 13 Adulterants Comment Normal Codeine, Ur Not Detected ng/mL Cutoff: 25 14 Qmtlwjd-6-uiue-glucuronide, Ur Not Detected ng/mL 15 Morphine, Ur Not Detected ng/mL Cutoff: 25 16 Ypaxrmlg-2-asmz-glucuronide, U Not Detected ng/mL 17 6-monoacetylmorphine, Ur Not Detected ng/mL Cutoff: 25 18 Hydrocodone, Ur Not Detected ng/mL Cutoff: 25 19 Norhydrocodone, Ur Not Detected ng/mL Cutoff: 25 20 Dihydrocodeine, Ur Not Detected ng/mL Cutoff: 25 21 Hydromorphone, Ur Not Detected ng/mL Cutoff: 25 22 Dinbuuvmrzvnv5hegriptcvvculzv Not Detected ng/mL 23 Oxycodone, Ur Not Detected ng/mL Cutoff: 25 24 Noroxycodone, Ur Not Detected ng/mL Cutoff: 25 25 Oxymorphone, Ur Not Detected ng/mL Cutoff: 25 26 Soudppvcapb-0-bqvz-glucuronide Not Detected ng/mL 27 Noroxymorphone, Ur Not Detected ng/mL Cutoff: 25 28 Fentanyl, Ur Not Detected ng/mL Cutoff: 2 29 Norfentanyl, Ur Not Detected ng/mL Cutoff: 2 30 Meperidine, Ur Not Detected ng/mL Cutoff: 25 31 Normeperidine, Ur Not Detected ng/mL Cutoff: 25 32 Naloxone, Ur Not Detected ng/mL Cutoff: 25 33 Fkiwmqwt-6-kzci-glucuronide, U Not Detected ng/mL 34 Methadone, Ur Not Detected ng/mL Cutoff: 25 35 Eddp, Ur Not Detected ng/mL Cutoff: 25 36 Propoxyphene, Ur Not Detected ng/mL Cutoff: 25 37 Norpropoxyphene, Ur Not Detected ng/mL Cutoff: 25 38 Tramadol, Ur Not Detected ng/mL Cutoff: 25 39 O-desmethyltramadol, Ur Not Detected ng/mL Cutoff: 25 40 Tapentadol, Ur Not Detected ng/mL Cutoff: 25 41 N-desmethyltapentadol, Ur Not Detected ng/mL Cutoff: 50 42 Umqkdufira-digd-rrpnvwjowit, U Not Detected ng/mL 43 Buprenorphine, Ur Not Detected ng/mL Cutoff: 5 44 Norbuprenorphine, Ur Not Detected ng/mL Cutoff: 5 45 Norbuprenorphine glucuronide Not Detected ng/mL Cutoff: 20 46 Opioid Interpretation See Comment 47 1 SEE RESULT BELOW Name: RYDER METCALF JR : [address]: Ida Ruff MD Acct: [id number] Unit: [id number] AGE: 37 Location: ED Re12/06/17 SEX: M Status: DEP ER SPEC: [id number] MYRON: 12/06/[address] [facility] [address]: Tracy Ruff MD REQ: [id number] RECD: 12/06/17 STATUS: RES CRISTIAN DR: Zhao Gallardo MD _ SOURCE: BLOOD,VENO SPDESC: ORDERED: Blood Cult Procedure Result Reported Site Aerobic Culture Bottle Preliminary 12/09/17- 1243 ML No Growth Day 3 Anaerobic Culture Bottle Preliminary 12/09/17- 1243 ML No Growth Day 3 * ML - Main Lab . END OF REPORT DEPARTMENT OF PATHOLOGY, [address] [place] [address] Kaleb Herrera M.D. Director [facility] # [id number] 2 Because ethnic data is not always readily [...] 15-29 5 Kidney failure <15 (or dialysis) 3 Specimen hemolyzed, spoke to Amy for recollect. 4 Specimen hemolyzed, spoke to Amy for recollect. 5 Acute inflammation: >10.00 6 REFERENCE VALUE Cutoff: 3.0 7 ADDITIONAL INFORMATION This report is intended for use in clinical monitoring and management of patients. It is not intended for use in employment-related testing. Test Performed by: [facility] - [address] [address] Core Piler: Hector Daley II, M.D., Ph.D. 8 REFERENCE VALUE Cutoff: 500 9 REFERENCE VALUE Cutoff: 200 10 REFERENCE VALUE Cutoff: 100 11 REFERENCE VALUE Cutoff: 150 12 Presumptive Positive Drug confirmation to follow. Presumptive Positive means that the screening method is positive, but the test needs to be run by a confirmatory method before being finalized. ADDITIONAL INFORMATION This report is intended for use in clinical monitoring or management of patients. It is not intended for use in employment-related testing. 13 REFERENCE VALUE Cutoff: 200 mg/L 14 Tylenol 3 15 Metabolite of codeine REFERENCE VALUE Cutoff: 100 16 Kelly Watts, MS Contin; Also a minor metabolite (10%) of codeine and can be seen in low concentrations (<2,000 ng/mL) with poppy seed ingestion. 17 Metabolite of morphine REFERENCE VALUE Cutoff: 100 18 Metabolite of heroin 19 Lortab, [place], Vicodin; Also a very minor metabolite of codeine and impurity (<1%) of oxycodone. 20 Metabolite of hydrocodone 21 Metabolite of hydrocodone 22 Dilaudid, Exalgo; Also a metabolite of hydrocodone and a minor (<5%) metabolite of morphine. 23 Metabolite of hydromorphone REFERENCE VALUE Cutoff: 100 24 Endocet, Percocet, Oxycontin 25 Metabolite of oxycodone 26 Numorphan, Opana; Also a metabolite of oxycodone. 27 Metabolite of oxymorphone REFERENCE VALUE Cutoff: 100 28 Metabolite of oxymorphone 29 Actiq, Duragesic, Fentora 30 Metabolite of fentanyl 31 Demerol 32 Metabolite of meperidine 33 Narcan 34 Metabolite of naloxone REFERENCE VALUE Cutoff: 100 35 Dolophine 36 Metabolite of methadone 37 Darvon, Darvocet 38 Metabolite of propoxyphene 39 Tradol, Ultram, Ultracet 40 Metabolite of tramadol 41 Nucynta 42 Metabolite of tapentadol 43 Metabolite of tapentadol REFERENCE VALUE Cutoff: 100 44 Buprenex, Suboxone 45 Metabolite of buprenorphine 46 Metabolite of buprenorphine 47 No opioids were detected. The absence of expected drug(s) and/or drug metabolite(s) may indicate non-compliance, altered pharmacokinetics, inappropriate timing of specimen collection relative to drug administration, diluted/adulterated urine, or limitations of testing. ADDITIONAL INFORMATION This test was developed and its performance characteristics determined by [facility] in a manner consistent with CLIA requirements. This test has not been cleared or approved by the U.S. Food and Drug Administration. Test Performed by: [place] [address] Core Piler: Hector Daley II, M.D., Ph.D. Procedures Date CPT Code Description Status 11/13/2016 59696 EKG, Interpretation Only Completed 11/12/2016 14302 ECHO Transthorasic Realtime 2D W Doppler & Color Completed Flow Hosp 12/19/2009 79578 Rad Exam; Hand Comp Completed 11/19/2009 98599 Closed [place] Metacarpal FX Single W/O Manipulation, Ea Completed Bone Encounters Type Date Location Provider CPT E/M Dx Office Visit 10/28/2017 1:40p [facility] Internal Medicine Zhao Gallardo, 23421 F41.9 - Henrique Manley R10.9 Office Visit 04/20/2017 3:00p [facility] Internal Zhao Gallardo, 44756 R10.30 Medicine - [place] Elan Manley M25.551 Z23 Office Visit 03/13/2017 10:00a [facility] Internal Medicine Zhao Gallardo, 57494 M25.571 - [place] Elan Manley Office Visit 11/13/2016 2:25p [place] Wilbert Rodríguez [address] R55 [facility] SAVANNA Larios R19.7 Office Visit 11/12/2016 2:24p [facility] ,danie Mai, [address] R55 [facility] N[facility] R19.7 F41.9 Office Visit 11/11/2016 4:20p [facility] Internal Zhao Gallardo, [address]7923 K29.70 Medicine - [place] [address] Vineet F41.0 Office Visit 09/03/2016 2:40p [facility] Internal Zhao Gallardo, 49971 S80.02xS Medicine - M.Jasmyn Duenas S90.32xS K29.70 Office Visit 08/14/2016 8:40a [facility] Internal Zhao Gallardo, 56654 S80.02xS Medicine - [address] Vineet S90.32xS Office Visit 07/31/2016 4:20p [facility] Internal Zhao Gallardo, 91601 S90.32xS Medicine - [address] Vineet S80.02xS Office Visit 07/14/2016 4:00p [facility] Internal Zhao Gallardo M.D. 08612 M54.5 Medicine - [address] M25.511 F33.0 Office Visit 06/24/2016 9:00a [facility] Internal Zhao Gallardo M.D. 80098 M54.5 Medicine - [address] M54.2 M25.511 M25.532 Plan of Care Future Appointment(s):12/11/2017 8:00 am - Zhao Gallardo M.D. at [facility] Internal Medicine - [address]12/08/2017 - Zhao Gallardo M.D.R10.30 Lower abdominal pain, unspecifiedComments:Most likely colitis.Will continue to observe. If the symptoms get wirse to call backFollow up:as needed
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
[2017-12-12 02:37] VITALS: BP 123/74
--- NOTE | 2017-12-12 08:15 | RAD ---
INDICATION: Right hand injury. TECHNIQUE: 4 views of the right hand were obtained. FINDINGS: The bones are in normal alignment. No fracture is seen. Joint spaces appear maintained. IMPRESSION: NO EVIDENCE FOR FRACTURE, IF THE PATIENT'S SYMPTOMS PERSIST RECOMMEND FOLLOW-UP IMAGING.
== END 2017-12-12 02:35 | disposition home or self-care (01) ==
LOC: ED 01:19
DX: S69.91XA Unspecified injury of right wrist, hand and finger(s), initial encounter (principal); X50.9XXA Other and unspecified overexertion or strenuous movements or postures, initial encounter; Y93.89 Activity, other specified; Y92.9 Unspecified place or not applicable; Z87.891 Personal history of nicotine dependence
CPT/HCPCS: 99282

== ENCOUNTER 2018-03-08 08:58 | Emergency (ER) | payer OTHER ==
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
--- NOTE | 2018-03-08 10:42 | RAD ---
INDICATION: Right hand injury. TECHNIQUE: 4 views of the right hand were obtained. FINDINGS: The bones are in normal alignment. No fracture is seen. Joint spaces appear maintained. IMPRESSION: NO EVIDENCE FOR FRACTURE.
[2018-03-08 10:48] LABS: ABS Basophils 0.1 10^3/ul (0-0.2); ABS Eosinophils 0.1 10^3/ul (0-0.6); ABS Lymphocytes 1.8 10^3/ul (1.0-4.8); ABS Monocytes 0.4 10^3/ul (0-0.8); ABS Neutrophils 1.6 10^3/ul (1.5-7.7); ABS Nucleated RBC 0 10^3/ul; Eosinophil % 1.5 % (0-6); Hematocrit 43 % (42-52); Hemoglobin 15.1 g/dl (14.0-18.0); Lymphocyte % 46.1 % (25-47); Mean Corpuscular HGB Conc 36 g/dl (31-36); Mean Corpuscular Hemoglobin 33 pg (27-31); Mean Corpuscular Volume 93 fL (80-94); Mean Platelet Volume 7.1 um3 (7.4-10.4); Nucleated Red Blood Cells % 0; Platelet Count 200 10^3/ul (150-450); Red Blood Count 4.58 10^6/ul (4.00-5.40); Red Cell Distribution Width 12 % (10.5-15)
[2018-03-08] MEDS ORDERED: Ketorolac INJ* 30 MG/ML 1 ML VIAL IM ONE (10:48)
--- NOTE | 2018-03-08 10:48 | RAD ---
indication: Head trauma after a fall COMPARISON: CT brain dated November 12, [address] scan of the brain and c-spine was performed without intravenous contrast enhancement. Contiguous axial sections were obtained from the lung apices through the vertex. BRAIN: Again seen is a 1.5 cm fluid density cystic lesion abutting the right frontal lobe unchanged since T4 517 CT of the brain. Otherwise the meyers-white matter differentiation is well maintained. There is no intracranial hemorrhage. No significant bony abnormality is present. The mastoid air cells are appropriately aerated. The visualized paranasal sinuses are clear. C-SPINE: On the sagittal view images there is nonspecific straightening of the normal cervical lordosis. The vertebral bodies and facet joints are otherwise appropriately aligned. There is no fracture or dislocation. The dens is intact. There is no widening of the atlantodental interval. There is no hyperdense material in the cervical canal to indicate hemorrhage. The visualized musculature and soft tissues are normal. There is no gross lymphadenopathy visualized. The visualized portion of the lung apices are clear. IMPRESSION: 1. No calvarial fracture or acute intracranial hemorrhage. 2. No acute fracture or dislocation of the cervical spine. 3. Again noted is a stable cystic lesion adjacent to the right frontal lobe.
[2018-03-08 11:02] LABS: EGFR Non-African American 88.7 (>60)
[2018-03-08 14:09] VITALS: BP 126/75
== END 2018-03-08 14:08 | disposition home or self-care (01) ==
LOC: ED 08:58
DX: S09.90XA Unspecified injury of head, initial encounter (principal); S60.221A Contusion of right hand, initial encounter; W19.XXXA Unspecified fall, initial encounter; Y92.9 Unspecified place or not applicable; F41.9 Anxiety disorder, unspecified; G93.9 Disorder of brain, unspecified
CPT/HCPCS: 36415; 70450; 72125; 80053; 80320; 80329; 84443; 85025; 96372; 99282; G0480; J1885

== ENCOUNTER 2018-03-10 11:03 | Emergency (ER) | payer OTHER ==
[2018-03-10] MEDS ORDERED: Lidocaine 1% MPF wEPI 200,000* 30 ML SDV INJ ONE (11:32)
[2018-03-10] MEDS ORDERED: Clindamycin CAP* 150 MG PO ONE (11:33)
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
[2018-03-10] MEDS ORDERED: Lidocaine 2% EPI 1:200000 MPF*10-20 ML VIAL ONE (12:04)
[2018-03-10 12:32] VITALS: BP 118/68
== END 2018-03-10 12:32 | disposition home or self-care (01) ==
LOC: ED 11:03
DX: L02.01 Cutaneous abscess of face (principal); Z86.14 Personal history of Methicillin resistant Staphylococcus aureus infection
CPT/HCPCS: 10060; 99282; J2001

== ENCOUNTER → 2018-05-28 13:16 | Emergency (ER) | payer OTHER ==
[~2018-05-28 13:16] MED LIST: Ketorolac INJ* 30 MG/ML 1 ML VIAL IV PUSH ONE; Metoclopramide IV* 5 MG/ML 2 ML VIAL IV ONE; NS 0.9% 1000 ML* 1,000 ML IV ONE; diPHENhydraMINE PO* 50 MG PO ONE
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
[2018-05-28 15:59] VITALS: BP 133/70
== END | disposition home or self-care (01) ==
LOC: ED 13:16
DX: G43.909 Migraine, unspecified, not intractable, without status migrainosus (principal); R11.2 Nausea with vomiting, unspecified; R19.7 Diarrhea, unspecified; Z88.6 Allergy status to analgesic agent; Z91.040 Latex allergy status
CPT/HCPCS: 96374; 96375; 99283; A9270-GY; J1885; J2765

== ENCOUNTER 2018-06-03 14:41 | Emergency (ER) | payer OTHER ==
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
[2018-06-03 15:56] VITALS: BP 113/62
== END 2018-06-03 15:55 | disposition home or self-care (01) ==
LOC: ED 14:41
DX: M25.511 Pain in right shoulder (principal); G89.29 Other chronic pain; K21.9 Gastro-esophageal reflux disease without esophagitis; M54.6 Pain in thoracic spine; V89.2XXS Person injured in unspecified motor-vehicle accident, traffic, sequela; Y92.9 Unspecified place or not applicable; F17.210 Nicotine dependence, cigarettes, uncomplicated
CPT/HCPCS: 99281

== ENCOUNTER 2018-09-01 07:33 | Emergency (ER) | payer SELFPAY ==
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
[2018-09-01] MEDS ORDERED: ALPRAZolam TAB* 0.25 MG PO ONE (08:33)
[2018-09-01 08:47] VITALS: BP 117/53
== END 2018-09-01 08:46 | disposition home or self-care (01) ==
LOC: ED 07:33
DX: F41.9 Anxiety disorder, unspecified (principal); F17.210 Nicotine dependence, cigarettes, uncomplicated; K21.9 Gastro-esophageal reflux disease without esophagitis
CPT/HCPCS: 99282; A9270-GY

== ENCOUNTER 2018-09-24 09:28 | Emergency (ER) | payer MEDICAID ==
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
[2018-09-24 11:45] VITALS: BP 126/82
== END 2018-09-24 11:43 | disposition home or self-care (01) ==
LOC: ED 09:28
DX: K08.89 Other specified disorders of teeth and supporting structures (principal); F32.9 Major depressive disorder, single episode, unspecified; F41.9 Anxiety disorder, unspecified; K21.9 Gastro-esophageal reflux disease without esophagitis; F17.210 Nicotine dependence, cigarettes, uncomplicated
CPT/HCPCS: 70486; 99282

== ENCOUNTER 2019-04-27 09:37 | Emergency (ER) | payer MEDICAID, OTHER ==
[2019-04-27 09:47] VITALS: BP 127/74
[2019-04-27] MEDS ORDERED: oxyCODONE/Acetamin 5/325 MG* TAB PO ONE (10:12)
[2019-04-27] MEDS ORDERED: Ondansetron TAB* 4 MG PO ONE (10:12)
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
== END 2019-04-27 11:03 | disposition home or self-care (01) ==
LOC: ED 09:37
DX: S92.422A Displaced fracture of distal phalanx of left great toe, initial encounter for closed fracture (principal); S92.532A Displaced fracture of distal phalanx of left lesser toe(s), initial encounter for closed fracture; W01.0XXA Fall on same level from slipping, tripping and stumbling without subsequent striking against object, initial encounter; Y92.9 Unspecified place or not applicable; K21.9 Gastro-esophageal reflux disease without esophagitis; F41.9 Anxiety disorder, unspecified; F32.9 Major depressive disorder, single episode, unspecified; F17.210 Nicotine dependence, cigarettes, uncomplicated; Z88.6 Allergy status to analgesic agent; Z91.040 Latex allergy status
CPT/HCPCS: 99282; A9270-GY

== ENCOUNTER 2019-09-07 08:28 | Emergency (ER) | payer OTHER ==
[2019-09-07] MEDS ORDERED: Ondansetron ODT TAB* 4 MG SL PRN (09:00)
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
[2019-09-07 09:56] LABS: Influenza A Molecular Negative (Negative); Influenza B Molecular Negative (Negative)
[2019-09-07 10:10] LABS: Rapid Strep Molecular Negative (Negative)
[2019-09-07 10:52] VITALS: BP 114/79
== END 2019-09-07 10:54 | disposition home or self-care (01) ==
LOC: ED 08:28
DX: J06.9 Acute upper respiratory infection, unspecified (principal); K21.9 Gastro-esophageal reflux disease without esophagitis; F41.9 Anxiety disorder, unspecified; F32.9 Major depressive disorder, single episode, unspecified; Z87.891 Personal history of nicotine dependence; Z88.8 Allergy status to other drugs, medicaments and biological substances; Z91.040 Latex allergy status
CPT/HCPCS: 87651; 99282; A9270-GY

== ENCOUNTER 2019-09-17 10:36 | Emergency (ER) | payer OTHER ==
[2019-09-17 10:45] VITALS: BP 99/58
[2019-09-17] MEDS ORDERED: Butalb/Acetamin/Caff TAB* 1 TAB PO ONE (12:12)
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
== END 2019-09-17 13:37 | disposition home or self-care (01) ==
LOC: ED 10:36
DX: G43.909 Migraine, unspecified, not intractable, without status migrainosus (principal); K21.9 Gastro-esophageal reflux disease without esophagitis; F41.9 Anxiety disorder, unspecified; F32.9 Major depressive disorder, single episode, unspecified; Z87.891 Personal history of nicotine dependence; Z88.8 Allergy status to other drugs, medicaments and biological substances; Z91.040 Latex allergy status
CPT/HCPCS: 99282; A9270-GY